=== PATIENT | male | born 2000 | race Caucasian/White ===

== ENCOUNTER 2018-10-19 15:00 | Inpatient (IN) | payer OTHER ==
[~2018-10-19] VITALS: Ht 170.2 cm; Wt 65.3 kg
[2018-10-19] MEDS ORDERED: ONDANSETRON HCL 4 MG TABLET PO PRN (16:00)
[2018-10-19 16:10] VITALS: BP 113/61
[2018-10-19 17:40] LABS: BASOPHILS % (AUTO) 0.6 % (0.0-2.0); EOSINOPHILS % (AUTO) 0.9 % (1.0-6.0); HEMATOCRIT 30.9 % (41-53); HEMOGLOBIN 10.3 g/dL (13.5-17.5); LYMPHOCYTES # (AUTO) 1.6 K/uL (1.0-4.8); LYMPHOCYTES % (AUTO) 11.2 % (22.0-44.0); MEAN CORPUSCULAR HEMOGLOBIN 29.9 pg (26.0-34.0); MEAN CORPUSCULAR HGB CONC 33.4 G/dL (31.0-37.0); MEAN CORPUSCULAR VOLUME 89 fL (80-100); MONOCYTES # (AUTO) 0.8 K/uL (0.1-1.0); MONOCYTES % (AUTO) 5.5 % (2.0-9.0); NEUTROPHILS # (AUTO) 11.4 K/uL (1.8-7.7); NEUTROPHILS % (AUTO) 81.8 % (40.0-70.0); PLATELET COUNT (AUTO) 674 K/uL (150-450); RED BLOOD CELL COUNT(AUTO) 3.45 MIL/uL (4.50-5.90); RED CELL DISTRIBUTION WIDTH 15.5 % (11.5-14.5)
[2018-10-19 17:56] LABS: ALANINE AMINOTRANSFERASE 82 U/L (12-78); ALBUMIN 2.7 g/dL (3.4-5.0); ALKALINE PHOSPHATASE 172 U/L (46-116); ANION GAP 7 mmol/L (8-16); ASPARTATE AMINOTRANSFERASE 44 U/L (15-37); BILIRUBIN,TOTAL 0.2 mg/dL (0.1-1.0); CALCIUM, TOTAL 9.4 mg/dL (8.8-10.5); CARBON DIOXIDE 33 mmol/L (22-29); CHLORIDE 101 mmol/L (98-107); CREATININE 0.64 mg/dL (0.60-1.30); GLOMERULAR FILTR. RATE CALC > 60 mL/min (>60); GLUCOSE,RANDOM 127 mg/dL (70-110); POTASSIUM 4.2 mmol/L (3.5-5.1); SODIUM SERUM 141 mmol/L (136-145); TOTAL PROTEIN, SERUM 7.5 g/dL (6.4-8.2); UREA NITROGEN, BLOOD 18 mg/dL (7-18)
[2018-10-19] MEDS: OxyCODONE HCL 5 MG IR TABLET PO PRN ×2 (18:01→23:16)
[2018-10-19 18:23] LABS: PLATELET MORPHOLOGY COMMENT INCREASED
[2018-10-19] MEDS: POLYETHYLENE GLYCOL 3350 17 GM PACKET PO SCH (18:33)
[2018-10-19] MEDS: HEPARIN SODIUM,PORCINE 5,000 UNITS/ML VIAL SQ SCH ×2 (18:34→20:19)
[2018-10-19] MEDS: GABAPENTIN 300 MG CAPSULE PO SCH ×2 (18:34→23:16)
[2018-10-19] MEDS ORDERED: HydrOXYzine HCL 25 MG TABLET PO PRN (19:15)
[2018-10-19] MEDS: DOCUSATE SODIUM 100 MG CAPSULE PO SCH (20:19)
[2018-10-19] MEDS: SENNA 187 MG TABLET PO SCH (20:19)
[2018-10-19] MEDS: OxyCODONE HCL 10 MG ER TABLET PO SCH (20:19)
[2018-10-19] MEDS: CELECOXIB 200 MG CAPSULE PO SCH (20:20)
[2018-10-19] MEDS: AMITRIPTYLINE HCL 25 MG TABLET PO SCH (20:20)
[2018-10-19 23:16] VITALS: BP 131/64
[2018-10-20 07:16] VITALS: BP 117/70
[2018-10-20] MEDS: CELECOXIB 200 MG CAPSULE PO SCH ×2 (09:02→21:01)
[2018-10-20] MEDS: MULTIVITAMINS WITH MINERALS, THERAPEUTIC TABLET PO SCH (09:02)
[2018-10-20] MEDS: OxyCODONE HCL 10 MG ER TABLET PO SCH ×2 (09:02→21:01)
[2018-10-20] MEDS: ASCORBIC ACID 500 MG TABLET PO SCH (09:02)
[2018-10-20] MEDS: DOCUSATE SODIUM 100 MG CAPSULE PO SCH ×2 (09:02→21:01)
[2018-10-20] MEDS: GABAPENTIN 300 MG CAPSULE PO SCH ×3 (09:02→23:09)
[2018-10-20] MEDS: POLYETHYLENE GLYCOL 3350 17 GM PACKET PO SCH (09:03)
[2018-10-20] MEDS: HEPARIN SODIUM,PORCINE 5,000 UNITS/ML VIAL SQ SCH ×3 (09:03→21:00)
[2018-10-20] MEDS: OxyCODONE HCL 5 MG IR TABLET PO PRN ×2 (11:01→15:49)
[2018-10-20 15:31] VITALS: BP 121/74
[2018-10-20] MEDS: AMITRIPTYLINE HCL 25 MG TABLET PO SCH (21:00)
[2018-10-20] MEDS: SENNA 187 MG TABLET PO SCH (21:01)
[2018-10-21] MEDS: TEMAZEPAM 15 MG CAPSULE PO PRN ×2 (00:16→23:18)
[2018-10-21 00:18] VITALS: BP 119/69
[2018-10-21] MEDS: OxyCODONE HCL 5 MG IR TABLET PO PRN ×3 (00:18→16:47)
[2018-10-21 07:14] VITALS: BP 127/71
[2018-10-21] MEDS: POLYETHYLENE GLYCOL 3350 17 GM PACKET PO SCH ×2 (08:51→09:00)
[2018-10-21] MEDS: HEPARIN SODIUM,PORCINE 5,000 UNITS/ML VIAL SQ SCH ×3 (08:52→20:58)
[2018-10-21] MEDS: GABAPENTIN 300 MG CAPSULE PO SCH ×3 (08:52→23:18)
[2018-10-21] MEDS: CELECOXIB 200 MG CAPSULE PO SCH ×2 (08:52→20:58)
[2018-10-21] MEDS: DOCUSATE SODIUM 100 MG CAPSULE PO SCH ×2 (08:52→20:58)
[2018-10-21] MEDS: ASCORBIC ACID 500 MG TABLET PO SCH (08:52)
[2018-10-21] MEDS: MULTIVITAMINS WITH MINERALS, THERAPEUTIC TABLET PO SCH (08:52)
[2018-10-21] MEDS: OxyCODONE HCL 10 MG ER TABLET PO SCH ×2 (08:55→20:58)
[2018-10-21 15:15] VITALS: BP 117/75
[2018-10-21] MEDS: HydrOXYzine HCL 25 MG TABLET PO PRN (17:42)
[2018-10-21 20:52] VITALS: BP 120/72
[2018-10-21] MEDS: AMITRIPTYLINE HCL 25 MG TABLET PO SCH (20:58)
[2018-10-21] MEDS: SENNA 187 MG TABLET PO SCH (20:58)
[2018-10-22 00:28] VITALS: BP 122/71
[2018-10-22] MEDS: ASCORBIC ACID 500 MG TABLET PO SCH (08:31)
[2018-10-22] MEDS: OxyCODONE HCL 10 MG ER TABLET PO SCH ×2 (08:31→20:20)
[2018-10-22] MEDS: CELECOXIB 200 MG CAPSULE PO SCH ×2 (08:31→20:20)
[2018-10-22] MEDS: GABAPENTIN 300 MG CAPSULE PO SCH ×2 (08:31→16:51)
[2018-10-22] MEDS: MULTIVITAMINS WITH MINERALS, THERAPEUTIC TABLET PO SCH (08:32)
[2018-10-22] MEDS: DOCUSATE SODIUM 100 MG CAPSULE PO SCH ×2 (08:32→20:19)
[2018-10-22] MEDS: HEPARIN SODIUM,PORCINE 5,000 UNITS/ML VIAL SQ SCH (08:32)
[2018-10-22] MEDS: POLYETHYLENE GLYCOL 3350 17 GM PACKET PO SCH (08:32)
[2018-10-22 08:44] VITALS: BP 138/82
[2018-10-22] MEDS: OxyCODONE HCL 5 MG IR TABLET PO PRN ×2 (14:07→18:22)
[2018-10-22 15:10] VITALS: BP 128/81
[2018-10-22 16:00] VITALS: BP 128/81
[2018-10-22] MEDS: AMITRIPTYLINE HCL 25 MG TABLET PO SCH (20:19)
[2018-10-22] MEDS: SENNA 187 MG TABLET PO SCH (20:19)
[2018-10-23] MEDS: GABAPENTIN 300 MG CAPSULE PO SCH ×3 (00:09→17:33)
[2018-10-23] MEDS: TEMAZEPAM 15 MG CAPSULE PO PRN (00:09)
[2018-10-23] MEDS: OxyCODONE HCL 10 MG ER TABLET PO SCH ×2 (00:16→20:20)
[2018-10-23 00:20] VITALS: BP 125/74
[2018-10-23 09:00] VITALS: BP 125/85
[2018-10-23] MEDS: POLYETHYLENE GLYCOL 3350 17 GM PACKET PO SCH (09:00)
[2018-10-23] MEDS: MULTIVITAMINS WITH MINERALS, THERAPEUTIC TABLET PO SCH (09:04)
[2018-10-23] MEDS: DOCUSATE SODIUM 100 MG CAPSULE PO SCH ×2 (09:04→20:20)
[2018-10-23] MEDS: ASCORBIC ACID 500 MG TABLET PO SCH (09:04)
[2018-10-23] MEDS: CELECOXIB 200 MG CAPSULE PO SCH ×2 (09:04→20:20)
[2018-10-23] MEDS: ENOXAPARIN SODIUM 40 MG/0.4 ML PF SYRINGE SQ SCH (09:05)
[2018-10-23] MEDS: OxyCODONE HCL 5 MG IR TABLET PO PRN (10:38)
[2018-10-23] MEDS: CEPHALEXIN MONOHYDRATE 250 MG CAPSULE PO SCH ×3 (13:47→20:22)
[2018-10-23 16:00] VITALS: BP 137/72
[2018-10-23] MEDS: AMITRIPTYLINE HCL 25 MG TABLET PO SCH (20:20)
[2018-10-23] MEDS: SENNA 187 MG TABLET PO SCH (20:20)
[2018-10-23] MEDS: ACETAMINOPHEN 325 MG TABLET PO PRN (22:20)
[2018-10-24] MEDS: TEMAZEPAM 15 MG CAPSULE PO PRN ×2 (00:17→23:17)
[2018-10-24] MEDS: GABAPENTIN 300 MG CAPSULE PO SCH ×4 (00:17→23:17)
[2018-10-24 00:18] VITALS: BP 129/79
[2018-10-24] MEDS: OxyCODONE HCL 5 MG IR TABLET PO PRN ×5 (00:18→23:58)
[2018-10-24] MEDS: ACETAMINOPHEN 325 MG TABLET PO PRN (02:29)
[2018-10-24 06:02] LABS: BAND NEUTROPHILS % (MANUAL) 0 % (0-5)
[2018-10-24 06:16] LABS: HEMATOCRIT 32.2 % (41-53); HEMOGLOBIN 10.7 g/dL (13.5-17.5); MEAN CORPUSCULAR HEMOGLOBIN 29.3 pg (26.0-34.0); MEAN CORPUSCULAR HGB CONC 33.3 G/dL (31.0-37.0); MEAN CORPUSCULAR VOLUME 88 fL (80-100); PLATELET COUNT (AUTO) 528 K/uL (150-450); RED BLOOD CELL COUNT(AUTO) 3.66 MIL/uL (4.50-5.90); RED CELL DISTRIBUTION WIDTH 14.5 % (11.5-14.5)
[2018-10-24 06:20] LABS: ANION GAP 5 mmol/L (8-16); CALCIUM, TOTAL 9.5 mg/dL (8.8-10.5); CARBON DIOXIDE 33 mmol/L (22-29); CHLORIDE 104 mmol/L (98-107); CREATININE 0.78 mg/dL (0.60-1.30); GLOMERULAR FILTR. RATE CALC > 60 mL/min (>60); GLUCOSE,RANDOM 98 mg/dL (70-110); POTASSIUM 4.5 mmol/L (3.5-5.1); SODIUM SERUM 142 mmol/L (136-145); UREA NITROGEN, BLOOD 18 mg/dL (7-18)
[2018-10-24 08:28] LABS: ERYTHROCYTE SEDIMENTATION RATE 58 MM/HR (0-15)
[2018-10-24] MEDS: ENOXAPARIN SODIUM 40 MG/0.4 ML PF SYRINGE SQ SCH (08:45)
[2018-10-24] MEDS: MULTIVITAMINS WITH MINERALS, THERAPEUTIC TABLET PO SCH (08:45)
[2018-10-24] MEDS: OxyCODONE HCL 10 MG ER TABLET PO SCH ×2 (08:46→20:32)
[2018-10-24] MEDS: CEPHALEXIN MONOHYDRATE 250 MG CAPSULE PO SCH ×4 (08:46→20:32)
[2018-10-24] MEDS: DOCUSATE SODIUM 100 MG CAPSULE PO SCH ×2 (08:46→20:32)
[2018-10-24] MEDS: ASCORBIC ACID 500 MG TABLET PO SCH (08:46)
[2018-10-24] MEDS: CELECOXIB 200 MG CAPSULE PO SCH ×2 (08:46→20:32)
[2018-10-24 08:50] LABS: EOSINOPHILS % (MANUAL) 3 % (1-6); LYMPHOCYTES % (MANUAL) 18 % (22-44); MONOCYTES % (MANUAL) 7 % (2-9); SEGMENTED NEUTROPHILS % 72 % (40-70)
[2018-10-24 09:00] VITALS: BP 112/71
[2018-10-24 15:39] VITALS: BP 125/70
[2018-10-24] MEDS: SENNA 187 MG TABLET PO SCH (20:32)
[2018-10-24] MEDS: AMITRIPTYLINE HCL 25 MG TABLET PO SCH (20:32)
[2018-10-24 23:58] VITALS: BP 132/80
[2018-10-25] MEDS: HydrOXYzine HCL 25 MG TABLET PO PRN (00:15)
[2018-10-25 08:00] VITALS: BP 112/71
[2018-10-25] MEDS: CEPHALEXIN MONOHYDRATE 250 MG CAPSULE PO SCH ×4 (08:39→21:10)
[2018-10-25] MEDS: GABAPENTIN 300 MG CAPSULE PO SCH ×3 (08:39→23:53)
[2018-10-25] MEDS: ASCORBIC ACID 500 MG TABLET PO SCH (08:39)
[2018-10-25] MEDS: MULTIVITAMINS WITH MINERALS, THERAPEUTIC TABLET PO SCH (08:39)
[2018-10-25] MEDS: OxyCODONE HCL 10 MG ER TABLET PO SCH ×2 (08:39→21:10)
[2018-10-25] MEDS: CELECOXIB 200 MG CAPSULE PO SCH ×2 (08:39→21:10)
[2018-10-25] MEDS: DOCUSATE SODIUM 100 MG CAPSULE PO SCH ×2 (08:39→21:10)
[2018-10-25] MEDS: ENOXAPARIN SODIUM 40 MG/0.4 ML PF SYRINGE SQ SCH (08:40)
[2018-10-25] MEDS: OxyCODONE HCL 5 MG IR TABLET PO PRN ×2 (14:08→22:33)
[2018-10-25 16:00] VITALS: BP 127/75
[2018-10-25] MEDS: SENNA 187 MG TABLET PO SCH (21:10)
[2018-10-25] MEDS: AMITRIPTYLINE HCL 25 MG TABLET PO SCH (21:10)
[2018-10-25 21:15] VITALS: BP 124/76
[2018-10-25] MEDS: TEMAZEPAM 15 MG CAPSULE PO PRN (21:17)
[2018-10-26 00:33] VITALS: BP 132/86
[2018-10-26] MEDS: OxyCODONE HCL 10 MG ER TABLET PO SCH ×2 (08:44→20:08)
[2018-10-26] MEDS: MULTIVITAMINS WITH MINERALS, THERAPEUTIC TABLET PO SCH (08:45)
[2018-10-26] MEDS: GABAPENTIN 300 MG CAPSULE PO SCH ×2 (08:45→17:07)
[2018-10-26] MEDS: DOCUSATE SODIUM 100 MG CAPSULE PO SCH ×2 (08:45→20:08)
[2018-10-26] MEDS: ASCORBIC ACID 500 MG TABLET PO SCH (08:45)
[2018-10-26] MEDS: CEPHALEXIN MONOHYDRATE 250 MG CAPSULE PO SCH ×4 (08:45→20:08)
[2018-10-26] MEDS: CELECOXIB 200 MG CAPSULE PO SCH ×2 (08:45→20:08)
[2018-10-26] MEDS: ENOXAPARIN SODIUM 40 MG/0.4 ML PF SYRINGE SQ SCH (08:47)
[2018-10-26 09:13] VITALS: BP 102/74
[2018-10-26 16:56] VITALS: BP 120/73
[2018-10-26] MEDS: OxyCODONE HCL 5 MG IR TABLET PO PRN ×2 (18:10→23:47)
[2018-10-26] MEDS: AMITRIPTYLINE HCL 25 MG TABLET PO SCH (20:08)
[2018-10-26] MEDS: SENNA 187 MG TABLET PO SCH (20:08)
[2018-10-26 20:15] VITALS: BP 126/75
[2018-10-26 23:47] VITALS: BP 128/77
[2018-10-27] MEDS: OxyCODONE HCL 5 MG IR TABLET PO PRN ×2 (00:15→15:14)
[2018-10-27] MEDS: GABAPENTIN 300 MG CAPSULE PO SCH ×4 (00:16→23:30)
[2018-10-27] MEDS: TEMAZEPAM 15 MG CAPSULE PO PRN (00:19)
[2018-10-27] MEDS: HydrOXYzine HCL 25 MG TABLET PO PRN (02:04)
[2018-10-27] MEDS: MULTIVITAMINS WITH MINERALS, THERAPEUTIC TABLET PO SCH (08:49)
[2018-10-27] MEDS: ENOXAPARIN SODIUM 40 MG/0.4 ML PF SYRINGE SQ SCH (08:49)
[2018-10-27] MEDS: CEPHALEXIN MONOHYDRATE 250 MG CAPSULE PO SCH ×4 (08:49→20:18)
[2018-10-27] MEDS: DOCUSATE SODIUM 100 MG CAPSULE PO SCH ×2 (08:50→20:18)
[2018-10-27] MEDS: CELECOXIB 200 MG CAPSULE PO SCH ×2 (08:50→20:18)
[2018-10-27] MEDS: ASCORBIC ACID 500 MG TABLET PO SCH (08:50)
[2018-10-27] MEDS: OxyCODONE HCL 10 MG ER TABLET PO SCH ×2 (08:50→20:18)
[2018-10-27 09:53] VITALS: BP 115/70
[2018-10-27 15:08] VITALS: BP 123/69
[2018-10-27] MEDS: ACETAMINOPHEN 325 MG TABLET PO PRN (17:50)
[2018-10-27] MEDS: SENNA 187 MG TABLET PO SCH (20:18)
[2018-10-27] MEDS: AMITRIPTYLINE HCL 25 MG TABLET PO SCH (20:18)
[2018-10-28] VITALS: BP 117/84
[2018-10-28 08:21] VITALS: BP 115/61
[2018-10-28] MEDS: CELECOXIB 200 MG CAPSULE PO SCH ×2 (08:42→20:19)
[2018-10-28] MEDS: MULTIVITAMINS WITH MINERALS, THERAPEUTIC TABLET PO SCH (08:42)
[2018-10-28] MEDS: ASCORBIC ACID 500 MG TABLET PO SCH (08:42)
[2018-10-28] MEDS: CEPHALEXIN MONOHYDRATE 250 MG CAPSULE PO SCH ×2 (08:42→12:40)
[2018-10-28] MEDS: DOCUSATE SODIUM 100 MG CAPSULE PO SCH ×2 (08:42→20:19)
[2018-10-28] MEDS: ENOXAPARIN SODIUM 40 MG/0.4 ML PF SYRINGE SQ SCH (08:42)
[2018-10-28] MEDS: GABAPENTIN 300 MG CAPSULE PO SCH ×3 (08:43→23:48)
[2018-10-28] MEDS: OxyCODONE HCL 10 MG ER TABLET PO SCH ×2 (08:45→20:20)
[2018-10-28 16:16] VITALS: BP 135/81
[2018-10-28] MEDS: ACETAMINOPHEN 325 MG TABLET PO PRN (18:18)
[2018-10-28] MEDS: SENNA 187 MG TABLET PO SCH (20:19)
[2018-10-28] MEDS: AMITRIPTYLINE HCL 25 MG TABLET PO SCH (20:20)
[2018-10-28] MEDS: TEMAZEPAM 15 MG CAPSULE PO PRN (23:48)
[2018-10-29 00:45] VITALS: BP 135/82
[2018-10-29] MEDS: OxyCODONE HCL 5 MG IR TABLET PO PRN (00:45)
[2018-10-29] MEDS: ACETAMINOPHEN 325 MG TABLET PO PRN (03:08)
[2018-10-29 07:08] VITALS: BP 131/85
[2018-10-29] MEDS: ASCORBIC ACID 500 MG TABLET PO SCH (08:02)
[2018-10-29] MEDS: CELECOXIB 200 MG CAPSULE PO SCH ×2 (08:02→20:12)
[2018-10-29] MEDS: MULTIVITAMINS WITH MINERALS, THERAPEUTIC TABLET PO SCH (08:02)
[2018-10-29] MEDS: LEVOFLOXACIN 500 MG TABLET PO SCH (08:02)
[2018-10-29] MEDS: OxyCODONE HCL 10 MG ER TABLET PO SCH ×2 (08:02→20:10)
[2018-10-29] MEDS: DOCUSATE SODIUM 100 MG CAPSULE PO SCH ×2 (08:02→20:12)
[2018-10-29] MEDS: GABAPENTIN 300 MG CAPSULE PO SCH ×3 (08:02→23:55)
[2018-10-29] MEDS: ENOXAPARIN SODIUM 40 MG/0.4 ML PF SYRINGE SQ SCH (08:03)
[2018-10-29] MEDS: LACTOBACILLUS ACIDOPHILUS/BULGARICUS TABLET PO SCH (09:28)
[2018-10-29 16:00] VITALS: BP 126/75
[2018-10-29] MEDS ORDERED: SODIUM CL IRRIG SOLN BOTTLE 250 ML IRRIG ONE (17:16)
[2018-10-29] MEDS: SENNA 187 MG TABLET PO SCH (20:09)
[2018-10-29] MEDS: AMITRIPTYLINE HCL 25 MG TABLET PO SCH (20:12)
[2018-10-30] VITALS: BP 142/85
[2018-10-30] MEDS: TEMAZEPAM 15 MG CAPSULE PO PRN (00:03)
[2018-10-30 07:30] VITALS: BP 128/74
[2018-10-30] MEDS: OxyCODONE HCL 5 MG IR TABLET PO PRN (07:38)
[2018-10-30] MEDS: DOCUSATE SODIUM 100 MG CAPSULE PO SCH (09:09)
[2018-10-30] MEDS: LEVOFLOXACIN 500 MG TABLET PO SCH (09:09)
[2018-10-30] MEDS: CELECOXIB 200 MG CAPSULE PO SCH ×2 (09:09→20:32)
[2018-10-30] MEDS: MULTIVITAMINS WITH MINERALS, THERAPEUTIC TABLET PO SCH (09:10)
[2018-10-30] MEDS: GABAPENTIN 300 MG CAPSULE PO SCH ×2 (09:10→16:41)
[2018-10-30] MEDS: ENOXAPARIN SODIUM 40 MG/0.4 ML PF SYRINGE SQ SCH (09:10)
[2018-10-30] MEDS: LACTOBACILLUS ACIDOPHILUS/BULGARICUS TABLET PO SCH (09:11)
[2018-10-30] MEDS: ASCORBIC ACID 500 MG TABLET PO SCH (09:11)
[2018-10-30] MEDS: OxyCODONE HCL 10 MG ER TABLET PO SCH ×2 (09:11→20:32)
[2018-10-30] MEDS ORDERED: POLYETHYLENE GLYCOL 3350 17 GM PACKET PO PRN (14:15)
[2018-10-30 16:00] VITALS: BP 132/76
[2018-10-30] MEDS: DOCUSATE SODIUM 250 MG CAPSULE PO SCH (20:32)
[2018-10-30] MEDS: AMITRIPTYLINE HCL 25 MG TABLET PO SCH (20:32)
[2018-10-30] MEDS: SENNA 187 MG TABLET PO SCH (20:32)
[2018-10-30] MEDS ORDERED: DICLOFENAC SODIUM 1% 100 GM GEL [2GM] TP PRN (22:45)
[2018-10-31] MEDS: GABAPENTIN 300 MG CAPSULE PO SCH ×4 (00:06→23:23)
[2018-10-31] MEDS: TEMAZEPAM 15 MG CAPSULE PO PRN (00:06)
[2018-10-31 00:22] VITALS: BP 127/75
[2018-10-31] MEDS: OxyCODONE HCL 5 MG IR TABLET PO PRN ×3 (00:22→23:23)
[2018-10-31 08:07] VITALS: BP 101/52
[2018-10-31] MEDS: LEVOFLOXACIN 500 MG TABLET PO SCH (09:20)
[2018-10-31] MEDS: DOCUSATE SODIUM 250 MG CAPSULE PO SCH ×2 (09:20→20:48)
[2018-10-31] MEDS: CELECOXIB 200 MG CAPSULE PO SCH ×2 (09:20→20:48)
[2018-10-31] MEDS: MULTIVITAMINS WITH MINERALS, THERAPEUTIC TABLET PO SCH (09:20)
[2018-10-31] MEDS: OxyCODONE HCL 10 MG ER TABLET PO SCH ×2 (09:21→20:48)
[2018-10-31] MEDS: ENOXAPARIN SODIUM 40 MG/0.4 ML PF SYRINGE SQ SCH (09:21)
[2018-10-31] MEDS: ASCORBIC ACID 500 MG TABLET PO SCH (09:21)
[2018-10-31] MEDS: LACTOBACILLUS ACIDOPHILUS/BULGARICUS TABLET PO SCH (09:24)
[2018-10-31] MEDS ORDERED: SODIUM CL IRRIG SOLN BOTTLE 250 ML IRRIG ONE (12:05)
[2018-10-31 16:50] VITALS: BP 126/72
[2018-10-31] MEDS: AMITRIPTYLINE HCL 25 MG TABLET PO SCH (20:48)
[2018-10-31] MEDS: SENNA 187 MG TABLET PO SCH (20:48)
[2018-10-31 23:23] VITALS: BP 127/67
[2018-11-01] MEDS: TEMAZEPAM 15 MG CAPSULE PO PRN (01:00)
[2018-11-01 07:18] VITALS: BP 119/78
[2018-11-01] MEDS: OxyCODONE HCL 10 MG ER TABLET PO SCH ×2 (09:14→20:48)
[2018-11-01] MEDS: GABAPENTIN 300 MG CAPSULE PO SCH ×3 (09:15→23:53)
[2018-11-01] MEDS: LEVOFLOXACIN 500 MG TABLET PO SCH (09:15)
[2018-11-01] MEDS: CELECOXIB 200 MG CAPSULE PO SCH ×2 (09:15→20:47)
[2018-11-01] MEDS: DOCUSATE SODIUM 250 MG CAPSULE PO SCH ×2 (09:15→20:47)
[2018-11-01] MEDS: ASCORBIC ACID 500 MG TABLET PO SCH (09:15)
[2018-11-01] MEDS: MULTIVITAMINS WITH MINERALS, THERAPEUTIC TABLET PO SCH (09:15)
[2018-11-01] MEDS: LACTOBACILLUS ACIDOPHILUS/BULGARICUS TABLET PO SCH (09:16)
[2018-11-01] MEDS: ENOXAPARIN SODIUM 40 MG/0.4 ML PF SYRINGE SQ SCH (09:16)
[2018-11-01 15:29] VITALS: BP 126/96
[2018-11-01] MEDS: OxyCODONE HCL 5 MG IR TABLET PO PRN (17:01)
[2018-11-01] MEDS: AMITRIPTYLINE HCL 25 MG TABLET PO SCH (20:48)
[2018-11-01] MEDS: SENNA 187 MG TABLET PO SCH (20:48)
[2018-11-02] VITALS: BP 125/72
[2018-11-02] MEDS: OxyCODONE HCL 5 MG IR TABLET PO PRN (01:13)
[2018-11-02 08:01] VITALS: BP 130/77
[2018-11-02] MEDS: OxyCODONE HCL 10 MG ER TABLET PO SCH ×2 (09:08→20:59)
[2018-11-02] MEDS: GABAPENTIN 300 MG CAPSULE PO SCH ×2 (09:08→15:52)
[2018-11-02] MEDS: ASCORBIC ACID 500 MG TABLET PO SCH (09:08)
[2018-11-02] MEDS: MULTIVITAMINS WITH MINERALS, THERAPEUTIC TABLET PO SCH (09:08)
[2018-11-02] MEDS: DOCUSATE SODIUM 250 MG CAPSULE PO SCH ×2 (09:08→20:59)
[2018-11-02] MEDS: CELECOXIB 200 MG CAPSULE PO SCH ×2 (09:09→20:59)
[2018-11-02] MEDS: LACTOBACILLUS ACIDOPHILUS/BULGARICUS TABLET PO SCH (09:09)
[2018-11-02] MEDS: ENOXAPARIN SODIUM 40 MG/0.4 ML PF SYRINGE SQ SCH (09:09)
[2018-11-02] MEDS: LEVOFLOXACIN 500 MG TABLET PO SCH (09:09)
[2018-11-02 15:45] VITALS: BP 125/70
[2018-11-02] MEDS: SENNA 187 MG TABLET PO SCH (20:59)
[2018-11-02] MEDS: TEMAZEPAM 15 MG CAPSULE PO PRN (20:59)
[2018-11-02] MEDS: AMITRIPTYLINE HCL 25 MG TABLET PO SCH (20:59)
[2018-11-03 04:46] VITALS: BP 115/72
[2018-11-03] MEDS: OxyCODONE HCL 5 MG IR TABLET PO PRN ×2 (04:46→23:26)
[2018-11-03] MEDS: GABAPENTIN 300 MG CAPSULE PO SCH ×4 (06:20→23:25)
[2018-11-03] MEDS: LEVOFLOXACIN 500 MG TABLET PO SCH (06:20)
[2018-11-03] MEDS: DOCUSATE SODIUM 250 MG CAPSULE PO SCH ×2 (06:20→21:14)
[2018-11-03] MEDS: ASCORBIC ACID 500 MG TABLET PO SCH (06:20)
[2018-11-03] MEDS: CELECOXIB 200 MG CAPSULE PO SCH ×2 (06:20→21:13)
[2018-11-03] MEDS: LACTOBACILLUS ACIDOPHILUS/BULGARICUS TABLET PO SCH (06:21)
[2018-11-03] MEDS: ENOXAPARIN SODIUM 40 MG/0.4 ML PF SYRINGE SQ SCH (06:21)
[2018-11-03] MEDS: MULTIVITAMINS WITH MINERALS, THERAPEUTIC TABLET PO SCH (06:29)
[2018-11-03 07:00] VITALS: BP 149/78
[2018-11-03] MEDS: OxyCODONE HCL 10 MG ER TABLET PO SCH ×2 (12:42→21:14)
[2018-11-03 16:18] VITALS: BP 119/75
[2018-11-03] MEDS: SENNA 187 MG TABLET PO SCH (21:13)
[2018-11-03] MEDS: AMITRIPTYLINE HCL 25 MG TABLET PO SCH (21:13)
[2018-11-03 23:25] VITALS: BP 126/64
[2018-11-03] MEDS: TEMAZEPAM 15 MG CAPSULE PO PRN (23:25)
[2018-11-04] MEDS: OxyCODONE HCL 5 MG IR TABLET PO PRN (06:46)
[2018-11-04 07:25] VITALS: BP 113/74
[2018-11-04] MEDS: ASCORBIC ACID 500 MG TABLET PO SCH (09:07)
[2018-11-04] MEDS: ENOXAPARIN SODIUM 40 MG/0.4 ML PF SYRINGE SQ SCH (09:07)
[2018-11-04] MEDS: MULTIVITAMINS WITH MINERALS, THERAPEUTIC TABLET PO SCH (09:07)
[2018-11-04] MEDS: LACTOBACILLUS ACIDOPHILUS/BULGARICUS TABLET PO SCH (09:07)
[2018-11-04] MEDS: DOCUSATE SODIUM 250 MG CAPSULE PO SCH ×2 (09:07→21:19)
[2018-11-04] MEDS: OxyCODONE HCL 10 MG ER TABLET PO SCH ×2 (09:08→21:19)
[2018-11-04] MEDS: CELECOXIB 200 MG CAPSULE PO SCH ×2 (09:08→21:19)
[2018-11-04] MEDS: LEVOFLOXACIN 500 MG TABLET PO SCH (09:09)
[2018-11-04] MEDS: GABAPENTIN 300 MG CAPSULE PO SCH ×2 (09:09→16:09)
[2018-11-04 16:11] VITALS: BP 115/63
[2018-11-04] MEDS: SENNA 187 MG TABLET PO SCH (21:19)
[2018-11-04] MEDS: AMITRIPTYLINE HCL 25 MG TABLET PO SCH (21:19)
[2018-11-05] MEDS: TEMAZEPAM 15 MG CAPSULE PO PRN ×2 (00:01→23:29)
[2018-11-05] MEDS: GABAPENTIN 300 MG CAPSULE PO SCH ×4 (00:01→23:30)
[2018-11-05 00:02] VITALS: BP 128/81
[2018-11-05] MEDS: OxyCODONE HCL 5 MG IR TABLET PO PRN ×2 (00:02→23:29)
[2018-11-05 09:09] VITALS: BP 100/56
[2018-11-05] MEDS: LEVOFLOXACIN 500 MG TABLET PO SCH (09:16)
[2018-11-05] MEDS: LACTOBACILLUS ACIDOPHILUS/BULGARICUS TABLET PO SCH (09:16)
[2018-11-05] MEDS: CELECOXIB 200 MG CAPSULE PO SCH ×2 (09:16→16:26)
[2018-11-05] MEDS: ASCORBIC ACID 500 MG TABLET PO SCH (09:16)
[2018-11-05] MEDS: MULTIVITAMINS WITH MINERALS, THERAPEUTIC TABLET PO SCH (09:16)
[2018-11-05] MEDS: DOCUSATE SODIUM 250 MG CAPSULE PO SCH ×2 (09:16→20:35)
[2018-11-05] MEDS: OxyCODONE HCL 10 MG ER TABLET PO SCH ×2 (09:17→20:35)
[2018-11-05] MEDS: ENOXAPARIN SODIUM 40 MG/0.4 ML PF SYRINGE SQ SCH (09:17)
[2018-11-05 09:28] VITALS: BP 127/81
[2018-11-05 12:56] VITALS: BP 136/75
[2018-11-05 16:20] VITALS: BP 134/87
[2018-11-05] MEDS: SENNA 187 MG TABLET PO SCH (20:35)
[2018-11-05] MEDS: AMITRIPTYLINE HCL 25 MG TABLET PO SCH (20:35)
[2018-11-06 01:29] VITALS: BP_SYST 125; BP_SYST 129; BP_DIAS 79; BP_DIAS 86
[2018-11-06] MEDS: MULTIVITAMINS WITH MINERALS, THERAPEUTIC TABLET PO SCH (09:20)
[2018-11-06] MEDS: DOCUSATE SODIUM 250 MG CAPSULE PO SCH ×2 (09:20→20:29)
[2018-11-06] MEDS: LEVOFLOXACIN 500 MG TABLET PO SCH (09:20)
[2018-11-06] MEDS: OxyCODONE HCL 10 MG ER TABLET PO SCH ×2 (09:20→20:30)
[2018-11-06] MEDS: GABAPENTIN 300 MG CAPSULE PO SCH ×3 (09:21→23:48)
[2018-11-06] MEDS: ASCORBIC ACID 500 MG TABLET PO SCH (09:21)
[2018-11-06] MEDS: LACTOBACILLUS ACIDOPHILUS/BULGARICUS TABLET PO SCH (09:21)
[2018-11-06 09:54] VITALS: BP 125/69
[2018-11-06 15:37] VITALS: BP 118/68
[2018-11-06] MEDS: CELECOXIB 200 MG CAPSULE PO SCH (16:17)
[2018-11-06] MEDS: SENNA 187 MG TABLET PO SCH (20:29)
[2018-11-06] MEDS: AMITRIPTYLINE HCL 25 MG TABLET PO SCH (20:29)
[2018-11-06 23:48] VITALS: BP 120/71
[2018-11-06] MEDS: OxyCODONE HCL 5 MG IR TABLET PO PRN (23:48)
[2018-11-06] MEDS: TEMAZEPAM 15 MG CAPSULE PO PRN (23:48)
[2018-11-07 08:00] VITALS: BP 152/75
[2018-11-07] MEDS: OxyCODONE HCL 10 MG ER TABLET PO SCH (08:48)
[2018-11-07] MEDS: ASCORBIC ACID 500 MG TABLET PO SCH (08:48)
[2018-11-07] MEDS: DOCUSATE SODIUM 250 MG CAPSULE PO SCH ×2 (08:48→20:12)
[2018-11-07] MEDS: MULTIVITAMINS WITH MINERALS, THERAPEUTIC TABLET PO SCH (08:48)
[2018-11-07] MEDS: LEVOFLOXACIN 500 MG TABLET PO SCH (08:49)
[2018-11-07] MEDS: LACTOBACILLUS ACIDOPHILUS/BULGARICUS TABLET PO SCH (08:49)
[2018-11-07] MEDS: GABAPENTIN 300 MG CAPSULE PO SCH ×3 (08:50→23:34)
[2018-11-07 11:00] VITALS: BP 126/75
[2018-11-07 16:03] VITALS: BP 139/84
[2018-11-07] MEDS: CELECOXIB 200 MG CAPSULE PO SCH (16:58)
[2018-11-07] MEDS: SENNA 187 MG TABLET PO SCH (20:12)
[2018-11-07] MEDS: OxyCODONE HCL 5 MG IR TABLET PO PRN (20:12)
[2018-11-07] MEDS: AMITRIPTYLINE HCL 25 MG TABLET PO SCH (20:15)
[2018-11-07] MEDS: TEMAZEPAM 15 MG CAPSULE PO PRN (22:20)
[2018-11-08] VITALS: BP 129/78
[2018-11-08 07:45] VITALS: BP 110/65
[2018-11-08] MEDS: ASCORBIC ACID 500 MG TABLET PO SCH (09:10)
[2018-11-08] MEDS: GABAPENTIN 300 MG CAPSULE PO SCH ×3 (09:10→23:21)
[2018-11-08] MEDS: LACTOBACILLUS ACIDOPHILUS/BULGARICUS TABLET PO SCH (09:10)
[2018-11-08] MEDS: MULTIVITAMINS WITH MINERALS, THERAPEUTIC TABLET PO SCH (09:10)
[2018-11-08] MEDS: DOCUSATE SODIUM 250 MG CAPSULE PO SCH ×2 (09:10→20:18)
[2018-11-08] MEDS: LEVOFLOXACIN 500 MG TABLET PO SCH (09:11)
[2018-11-08] MEDS: OxyCODONE HCL 5 MG IR TABLET PO PRN ×2 (09:27→23:40)
[2018-11-08 16:00] VITALS: BP 118/62
[2018-11-08] MEDS: CELECOXIB 200 MG CAPSULE PO SCH (16:51)
[2018-11-08] MEDS: SENNA 187 MG TABLET PO SCH (20:17)
[2018-11-08] MEDS: AMITRIPTYLINE HCL 25 MG TABLET PO SCH (20:18)
[2018-11-08 23:40] VITALS: BP 126/67
[2018-11-08] MEDS: TEMAZEPAM 15 MG CAPSULE PO PRN (23:40)
[2018-11-09 07:05] VITALS: BP 116/70
[2018-11-09] MEDS: LACTOBACILLUS ACIDOPHILUS/BULGARICUS TABLET PO SCH (08:33)
[2018-11-09] MEDS: LEVOFLOXACIN 500 MG TABLET PO SCH (08:33)
[2018-11-09] MEDS: DOCUSATE SODIUM 250 MG CAPSULE PO SCH ×2 (08:33→20:32)
[2018-11-09] MEDS: GABAPENTIN 300 MG CAPSULE PO SCH ×3 (08:33→23:30)
[2018-11-09] MEDS: ASCORBIC ACID 500 MG TABLET PO SCH (08:34)
[2018-11-09] MEDS: MULTIVITAMINS WITH MINERALS, THERAPEUTIC TABLET PO SCH (08:34)
[2018-11-09 16:01] VITALS: BP 123/70
[2018-11-09] MEDS: CELECOXIB 200 MG CAPSULE PO SCH (16:49)
[2018-11-09] MEDS: AMITRIPTYLINE HCL 25 MG TABLET PO SCH (20:32)
[2018-11-09] MEDS: SENNA 187 MG TABLET PO SCH (20:32)
[2018-11-09] MEDS ORDERED: CELE200 PO (22:14)
[2018-11-09] MEDS ORDERED: GABA-531 PO (22:14)
[2018-11-09] MEDS ORDERED: DOCU250C91 PO (22:14)
[2018-11-09] MEDS ORDERED: AMIT25TA9 PO (22:16)
[2018-11-09] MEDS ORDERED: LEVO500 PO (22:16)
[2018-11-09] MEDS ORDERED: ACID1TAB8 PO (22:16)
[2018-11-09] MEDS ORDERED: ASCO500 PO (22:16)
[2018-11-10] VITALS: BP 128/73
[2018-11-10] MEDS ORDERED: ACET-2247 PO (07:29)
[2018-11-10] MEDS ORDERED: MULT-1239 PO (07:30)
[2018-11-10 07:55] VITALS: BP 111/70
[2018-11-10] MEDS: MULTIVITAMINS WITH MINERALS, THERAPEUTIC TABLET PO SCH (08:14)
[2018-11-10] MEDS: DOCUSATE SODIUM 250 MG CAPSULE PO SCH (08:14)
[2018-11-10] MEDS: LACTOBACILLUS ACIDOPHILUS/BULGARICUS TABLET PO SCH (08:14)
[2018-11-10] MEDS: ASCORBIC ACID 500 MG TABLET PO SCH (08:14)
[2018-11-10] MEDS: GABAPENTIN 300 MG CAPSULE PO SCH (08:14)
[2018-11-10] MEDS: LEVOFLOXACIN 500 MG TABLET PO SCH (08:14)
== END 2018-11-10 09:28 | disposition home or self-care (01) | DRG 86 ==
LOC: 2WR 15:00
DX: S06.5X0A Traumatic subdural hemorrhage without loss of consciousness, initial encounter (principal); S22.42XA Multiple fractures of ribs, left side, initial encounter for closed fracture; E46 Unspecified protein-calorie malnutrition; G47.00 Insomnia, unspecified; S42.002A Fracture of unspecified part of left clavicle, initial encounter for closed fracture; S42.102A Fracture of unspecified part of scapula, left shoulder, initial encounter for closed fracture; F43.21 Adjustment disorder with depressed mood; K59.00 Constipation, unspecified; Z79.899 Other long term (current) drug therapy; Z89.612 Acquired absence of left leg above knee; Z68.22 Body mass index [BMI] 22.0-22.9, adult
CPT/HCPCS: 85007; 85651; 87070; 87081; 87205; 92507; 92523; 93970; 97110; 97116; 97150; 97163; 97167; 97530; 97535; 99366; J1644; J1650